=== PATIENT | male | born 1990 | race Caucasian/White ===

== ENCOUNTER 2016-08-16 03:44 | Emergency (ER) | payer BC ==
[2016-08-16] MEDS ORDERED: LORazepam 2 MG/ML INJ IVP ONE (03:48)
[2016-08-16] MEDS ORDERED: NS 2,000 ML IV ONE (03:48)
--- NOTE | 2016-08-16 03:48 | EDPHY ---
H & P HPI/ROS: HPI CHIEF COMPLAINT: Alcohol intoxication, cocaine abuse HISTORY OF PRESENT ILLNESS: This patient is a 26-year-old male, presents the emergency room by EMS for tachycardia, palpitations, alcohol intoxication and cocaine intoxication. Patient tells me that he had 10 liquor drinks this evening. He tells me he is on sure exactly how much cocaine he did. He called 911 after he could not come down his local hotel. He tells me he had racing heart, palpitations. Denies chest pain or shortness of breath. Upon arrival here is noted to have a heart rate in the 130s. Past Medical History:No significant medical history Past Surgical History: No significant surgical history except for appendectomy Social History: occasional alcohol use, occasional cocaine no other illicit drugs, does smoke tobacco Family History: Noncontributory ROS REVIEW OF SYSTEMS: A comprehensive 10 point review of systems is otherwise negative aside from elements mentioned in the history of present illness. Exam Constitutional triage nursing summary reviewed, vital signs reviewed, awake/ alert. Eyes normal conjunctivae and sclera, EOMI, PERRLA. HENT normal inspection, atraumatic, moist mucus membranes, no epistaxis, neck supple/ no meningismus, no raccoon eyes. Respiratory clear to auscultation bilaterally, normal breath sounds, no respiratory distress, no wheezing. Cardiovascular tachycardic, regular rhythm, no murmur, no edema, distal pulses normal. Gastrointestinal soft, non-tender, no rebound, no guarding, normal bowel sounds, no distension, no pulsatile mass. Genitourinary no CVA tenderness. Musculoskeletal no midline vertebral tenderness, full range of motion, no calf swelling, no tenderness of extremities, no meningismus, good pulses, neurovascularly intact. Skin pink, warm, & dry, no rash, skin atraumatic. Neurologic awake, alert and oriented x 3, AAOx3, moves all 4 extremities equally, motor intact, sensory intact, CN II-XII intact, normal cerebellar, normal vision, normal speech. Psychiatric normal mood/affect. Heme/Lymph/Immune no lymphadenopathy. Differential Diagnosis: includes but is not limited to in a particular order acute alcohol intoxication, cocaine intoxication, cocaine abuse, dehydration, cocaine induced tachycardia, demand ischemia, cardiac arrhythmia Medical Decision Making: This patient had an IV established she received IV fluid bolus, IV Ativan for tachycardia with cocaine, will check an EKG, chest x- ray and blood work. Alcohol level. And re-evaluate. Re-evaluation: EKG interpretation by me on record in [employer] system. Impression time of EKG 3:58 a.m., this is sinus tachycardia rate of 113, do not appreciate any acute ST elevation or ST depression or T-wave abnormalities. There is a borderline prolonged QT interval of 348. 0510: Re-examination at this time patient is resting comfortably no acute distress. Has no chest pain shortness of breath, tachycardia has improved. Patient received 2 L normal saline here. Troponin negative. CK elevated at a 1000 will repeat this. ED x-ray chest one view: Negative for acute cardiopulmonary disease. 0531: re-evaluation CK trending down. Re-evaluation at this time patient is resting comfortably no acute distress he is requesting be discharged. He has no nausea vomiting chest pain or shortness of breath. Heart rate improved. CK trending down. I encouraged him to drink lots of fluids today return to the ER if there is any worsening symptoms questions or concerns. He should be urinating clear fluids. He understands if he has trouble urinating or dark concentrated urine he needs return to the ER. Source: Patient, EMS Constitutional: Initial Vital Signs O2 Sat (%) 96 08/16/16 03:48 O2 Delivery Mode Room Air O2 (L/minute) 2 Allergies/Adverse Reactions: No Known Allergies Allergy (Unverified 08/16/16 04:10) Home Medications: Medication Instructions Recorded NK [No Known Home Meds] 08/16/16 Medical Decision Making - Data Points Laboratory Results: Laboratory Results 08/16/16 03:45 08/16/16 03:45 08/16/16 08/16/16 04:00 03:45 WBC 13.27 H 10^3/uL (3.80-9.50) RBC 5.62 10^6/uL (4.40-6.38) Hgb 18.2 H g/dL (13.7-17.5) Hct 49.6 % (40.0-51.0) MCV 88.3 fL (81.5-99.8) MCH 32.4 pg (27.9-34.1) MCHC 36.7 g/dL (32.4-36.7) RDW 11.8 % (11.5-15.2) Plt Count 280 10^3/uL (150-400) MPV 10.8 fL (8.7-11.7) Neut % (Auto) 68.0 % (39.3-74.2) Lymph % (Auto) 20.9 % (15.0-45.0) [place] % (Auto) 9.6 % (4.5-13.0) Eos % (Auto) 0.6 % (0.6-7.6) Baso % (Auto) 0.5 % (0.3-1.7) Nucleat RBC Rel Count 0.0 % (0.0-0.2) Absolute Neuts (auto) 9.02 H 10^3/uL (1.70-6.50) Absolute Lymphs (auto) 2.78 10^3/uL (1.00-3.00) Absolute Monos (auto) 1.28 H 10^3/uL (0.30-0.80) Absolute Eos (auto) 0.08 10^3/uL (0.03-0.40) Absolute Basos (auto) 0.06 10^3/uL (0.02-0.10) Absolute Nucleated RBC 0.00 10^3/uL (0-0.01) Immature Gran % 0.4 % (0.0-1.1) Immature Gran # 0.05 10^3/uL (0.00-0.10) Sodium 144 mEq/L (134-144) Potassium 4.2 mEq/L (3.5-5.2) Chloride 102 mEq/L (97-110) Carbon Dioxide 19 L mEq/l (22-31) Anion Gap 23 mEq/L (8-16) BUN 8 mg/dL (7-23) Creatinine 0.8 mg/dL (0.7-1.3) Estimated GFR > 60 Glucose 85 mg/dL (70-100) Calcium 10.6 H mg/dL (8.5-10.4) Magnesium 2.1 mg/dL (1.6-2.3) Total Bilirubin 1.3 mg/dL (0.1-1.4) Conjugated Bilirubin 0.4 mg/dL (0.0-0.5) Unconjugated Bilirubin 0.9 mg/dL (0.0-1.1) AST 49 IU/L (17-59) ALT 75 H IU/L (21-72) Alkaline Phosphatase 124 IU/L (38-126) Creatine Kinase 1006 H IU/L (0-224) CK-MB (CK-2) Fraction 3.51 H ng/mL (0-3.19) CK-MB (CK-2) % 0.3 % (0.0-4.0) Creatine Kinase Interp NEGATIVE (NEGATIVE) Troponin I < 0.012 ng/mL (0-0.034) Total Protein 9.2 H g/dL (6.3-8.2) Albumin 5.6 H g/dL (3.5-5.0) Lipase 66.0 IU/L (23-300) Urine Opiates Screen NEGATIVE (NEGATIVE) Urine Barbiturates NEGATIVE (NEGATIVE) Ur Phencyclidine Scrn NEGATIVE (NEGATIVE) Ur Amphetamine Screen NEGATIVE (NEGATIVE) U Benzodiazepines Scrn NEGATIVE (NEGATIVE) Urine Cocaine Screen NON-NEGATIVE H (NEGATIVE) U Marijuana (THC) Screen NON-NEGATIVE H (NEGATIVE) Ethyl Alcohol 28 H mg/dL (0-10) Medications Given: Discontinued Medications Sodium Chloride (Ns) 2,000 mls @ 0 mls/hr IV ONCE ONE PRN Reason: As Directed Stop: 08/16/16 03:49 Last Admin: 08/16/16 04:31 Dose: 2,000 mls Lorazepam (Ativan Injection) 1 mg IVP EDNOW ONE Stop: 08/16/16 03:49 Last Admin: 08/16/16 04:31 Dose: 1 mg Departure - Departure Disposition: Home, Routine, Self-Care Clinical Impression: Cocaine abuse Alcoholic intoxication Qualifiers: Complication of substance-induced condition: uncomplicated Qualifier Code: ( F10.120) Alcohol abuse with intoxication, uncomplicated Condition: Good Instructions: Cocaine Abuse (ED), Alcohol Intoxication (ED) Referrals: NONE *PRIMARY CARE P,. [Primary Care Provider] - As per Instructions
--- NOTE | 2016-08-16 03:59 | CPEKG ---
Heart Rate: 113 RR Interval: 531 P-R Interval: 120 QRSD Interval: 94 QT Interval: 348 QTC Interval: 478 P Means: 71 QRS Means: 73 T Wave Means: 34 EKG Severity - BORDERLINE ECG - EKG Impression: SINUS TACHYCARDIA EKG Impression: BORDERLINE PROLONGED QT INTERVAL Electronically Signed By: Rashawn Hensley 16-Aug-2016 07:26:41
[2016-08-16 04:14] LABS: % IMMATURE GRANULYOCYTES 0.4 % (0.0-1.1); ABSOLUTE IMMATURE GRANULOCYTES 0.05 10^3/uL (0.00-0.10); ADD DIFF? NO; ADD MORPH? NO; ADD SCAN? NO; ATYPICAL LYMPHOCYTE FLAG 20 (0-99); FRAGMENT RBC FLAG 0 (0-99); HEMATOCRIT 49.6 % (40.0-51.0); HEMOGLOBIN 18.2 g/dL (13.7-17.5); LEFT SHIFT FLG 0 (0-99); LIPEMIA HEMOLYSIS FLAG 90 (0-99); MEAN CELL HEMOGLOBIN 32.4 pg (27.9-34.1); MEAN CELL HEMOGLOBIN CONCENTR. 36.7 g/dL (32.4-36.7); MEAN CELL VOLUME 88.3 fL (81.5-99.8); MEAN PLATELET VOLUME 10.8 fL (8.7-11.7); PLATELET CLUMPS FLAG 10 (0-99); PLATELET COUNT 280 10^3/uL (150-400); RED BLOOD CELL COUNT 5.62 10^6/uL (4.40-6.38); RED CELL DISTRIBUTION WIDTH 11.8 % (11.5-15.2)
[2016-08-16 04:19] VITALS: O2SAT 96
[2016-08-16 04:23] LABS: ALANINE AMINOTRANSFERASE 75 IU/L (21-72); ALBUMIN 5.6 g/dL (3.5-5.0); ALKALINE PHOSPHATASE 124 IU/L (38-126); ANION GAP 23 mEq/L (8-16); ASPARTATE AMINOTRANSFERASE 49 IU/L (17-59); BILIRUBIN,TOTAL 1.3 mg/dL (0.1-1.4); BILIRUBIN-CONJUGATED 0.4 mg/dL (0.0-0.5); BILIRUBIN-UNCONJUGATED 0.9 mg/dL (0.0-1.1); CALCIUM 10.6 mg/dL (8.5-10.4); CARBON DIOXIDE 19 mEq/l (22-31); CHLORIDE 102 mEq/L (97-110); CREATININE 0.8 mg/dL (0.7-1.3); ETHANOL SERUM 28 mg/dL (0-10); GLOMERULAR FILTRATION RATE > 60; GLUCOSE 85 mg/dL (70-100); MAGNESIUM 2.1 mg/dL (1.6-2.3); POTASSIUM 4.2 mEq/L (3.5-5.2); SODIUM 144 mEq/L (134-144); TOTAL PROTEIN 9.2 g/dL (6.3-8.2)
[2016-08-16 04:33] LABS: CK-MB INTERPRETATION NEGATIVE (NEGATIVE); TROPONIN I < 0.012 ng/mL (0-0.034)
[2016-08-16 04:34] LABS: CREATINE KINASE-MB FRACTION 3.51 ng/mL (0-3.19)
[2016-08-16 06:46] VITALS: BP 143/74; PULSE 86; RESP 16; TEMP 97.9
[2016-08-16 06:58] LABS: CK-MB INTERPRETATION NEGATIVE (NEGATIVE); CREATINE KINASE-MB FRACTION 2.48 ng/mL (0-3.19)
--- NOTE | 2016-08-16 09:20 | DX ---
Portal AP Upright Chest - August 16, 2016, at 4:08 a.m. Clinical History: 26-year-old male with substance abuse, presenting to the Emergency Department with his heart racing and chest pain. Comparison Study: None. Findings: Telemetry monitoring lead lines are noted. The cardiac and mediastinal silhouette is normal . There is no focal infiltrate, atelectasis, pleural effusion, peripheral interstitial edema, or pneu mothorax. The trachea is midline. The osseous structures are age-appropriate. Impression: Normal.
== END 2016-08-16 06:46 | disposition home or self-care (01) ==
DX: F14.10 Cocaine abuse, uncomplicated (principal); F10.120 Alcohol abuse with intoxication, uncomplicated
CPT/HCPCS: 96374; G0477; G0480

== ENCOUNTER 2017-04-06 10:57 | Emergency (ER) | payer BC ==
[2017-04-06 11:15] VITALS: RESP 16
[2017-04-06] MEDS ORDERED: ONDANSETRON 4 MG/2 ML VIAL IVP ONE (11:45)
[2017-04-06] MEDS ORDERED: KETOROLAC 30 MG/1 ML SDV IVP ONE (11:45)
[2017-04-06] MEDS ORDERED: NS 1,000 ML IV ONE (11:45)
[2017-04-06 12:10] LABS: COLOR PALE YELLOW; LEUKOCYTE ESTERASE,URINE NEGATIVE (NEGATIVE); NITRITE,URINE NEGATIVE (NEGATIVE)
[2017-04-06 12:36] LABS: % IMMATURE GRANULYOCYTES 0.2 % (0.0-1.1); ABSOLUTE IMMATURE GRANULOCYTES 0.02 10^3/uL (0.00-0.10); ADD DIFF? NO; ADD MORPH? NO; ADD SCAN? NO; ATYPICAL LYMPHOCYTE FLAG 20 (0-99); FRAGMENT RBC FLAG 0 (0-99); HEMATOCRIT 47.3 % (40.0-51.0); HEMOGLOBIN 16.4 g/dL (13.7-17.5); LEFT SHIFT FLG 0 (0-99); LIPEMIA HEMOLYSIS FLAG 90 (0-99); MEAN CELL HEMOGLOBIN 30.4 pg (27.9-34.1); MEAN CELL HEMOGLOBIN CONCENTR. 34.7 g/dL (32.4-36.7); MEAN CELL VOLUME 87.6 fL (81.5-99.8); PLATELET CLUMPS FLAG 40 (0-99); PLATELET COUNT 224 10^3/uL (150-400); RED CELL DISTRIBUTION WIDTH 12.5 % (11.5-15.2)
[2017-04-06 12:53] LABS: ANION GAP 12 mEq/L (8-16); CALCIUM 9.1 mg/dL (8.5-10.4); CARBON DIOXIDE 22 mEq/l (22-31); CHLORIDE 107 mEq/L (97-110); CREATININE 0.6 mg/dL (0.7-1.3); GLOMERULAR FILTRATION RATE > 60; GLUCOSE 78 mg/dL (70-100); POTASSIUM 4.6 mEq/L (3.5-5.2); SODIUM 141 mEq/L (134-144)
--- NOTE | 2017-04-06 13:53 | EDPHY ---
H & P Smoking Status: Current every day smoker Time Seen by Provider: 04/06/17 13:50 HPI/ROS: HPI: This is a 26-year-old male who presents Chief Complaint: Left flank pain Location: Left pain Quality: Pain Duration: 1-2 hours Signs and Symptoms: No fever, no injury, no urinary symptoms including no hematuria, no nausea, no vomiting, no diarrhea, no groin pain, no testicular discharge, no chest pain, no shortness of breath Timing: Sudden Severity: Moderate Context: Patient presents with left flank pain nonradiating in nature that is moderate to severe. No history kidney stones. Patient is worried about kidney stones as he spoke with his friends and looked up on [employer]. The patient denies any recent injury or heavy lifting. Modifying Factors: No gout-tek-ctntasr medications tried Comment: ROS: Eyes: No blurred vision Respiratory: No shortness of breath, no cough Cardiovascular: No chest pain Gastrointestinal: No nausea, no vomiting no diarrhea Genitourinary: No dysuria Extremities: No myalgias Neurologic: No weakness, no numbness Skin: No rashes Hematologic: No bruising, no bleeding MEDICAL/SURGICAL HISTORY: Appendectomy. Generally healthy. (Lynn Lane) Social History: Student. Drinks considerable amount of caffeine. (Lynn Lane) Physical Exam: CONSTITUTIONAL: awake and alert, no obvious distress HEENT: Atraumatic and normocephalic, PERRL, EOMI. Tympanic membranes clear. Oropharynx clear, no exudate and moist pink mucosa. Airway patent. No lymphadenopathy. No meningismus. Cardiovascular: Normal S1/S2, regular rate, regular rhythm, without murmur rub or gallop. PULMONARY/CHEST: Symmetrical and nontender. Clear to auscultation bilaterally Good air movement. No accessory muscle usage. ABDOMEN: Soft, nondistended, nontender, no rebound, no guarding, no peritoneal signs, no masses or organomegaly. mild CVAT. EXTREMITIES: 2/2 pulses, no deformities, no clubbing, no cyanosis or edema. NEUROLOGICAL: no focal neuro deficits. GCS 15. SKIN: Warm and dry, no erythema. no rash. Good capillary refill. (Lynn Lane) Constitutional: Initial Vital Signs Temperature (C) 37.1 C 04/06/17 11:13 Heart Rate 80 04/06/17 11:13 Respiratory Rate 16 08/22/17 11:13 Blood Pressure 117/75 04/06/17 11:13 O2 Sat (%) 98 04/06/17 11:13 O2 Delivery Mode Room Air Allergies/Adverse Reactions: No Known Allergies Allergy (Unverified 08/16/16 04:10) Home Medications: Medication Instructions Recorded NK [No Known Home Meds] 08/16/16 Medical Decision Making - Diagnostics Imaging Results: Imaging Impressions Abdomen/Pelvis CT 04/06/17 11:45 Impression: 1. No nephrolithiasis or hydronephrosis. 2. Previous appendectomy. 3. Mild constipation. 4. No hepatosplenomegaly or bowel obstruction. Attention: This CT examination is specifically designed to evaluate patients who are clinically suspected of having acute obstructive uropathy. This examination does not use radiographic contrast, and as such, provides only a limited evaluation of the abdomen, pelvis and retroperitoneum. If there is further clinical suspicion for pathological conditions other than obstructive uropathy, a complete CT evaluation of the abdomen and pelvis utilizing intravenous, oral, and rectal contrast should be considered. Findings and recommendations discussed with Emergency Department physician, Lynn Lane PA-C at 1351 hours on April 06, 2017. Final report concurs with initial preliminary interpretation. ED Course/Re-evaluation: Labs, urinalysis, IV fluids, IV medications, CT abdominal and pelvis scan Labs and urinalysis grossly unremarkable Afebrile no systemic signs. Pain relieved with Toradol Suspect musculoskeletal component 1350: Called by Radiology and no signs of kidney stone or compression fracture. Mild constipation noted. (Lynn Lane) The patient was evaluated and managed by the physician podiatric assistant. I have reviewed this chart and I agree with the findings and plan of care as documented , as indicated by my signature. I am the secondary supervising physician. ( Anastasia De Santiago) Differential Diagnosis: Abdominal pain including but not limited to appendicitis, cholecystitis, gastritis and urinary tract infection. (Lynn Lane) - Data Points Laboratory Results: Laboratory Results 04/06/17 12:30 04/06/17 12:30 04/06/17 04/06/17 04/06/17 12:30 12:30 11:45 WBC 8.01 10^3/uL 10^3/uL (3.80-9.50) RBC 5.40 10^6/uL 10^6/uL (4.40-6.38) Hgb 16.4 g/dL g/dL (13.7-17.5) Hct 47.3 % % (40.0-51.0) MCV 87.6 fL fL (81.5-99.8) MCH 30.4 pg pg (27.9-34.1) MCHC 34.7 g/dL g/dL (32.4-36.7) RDW 12.5 % % (11.5-15.2) Plt Count 224 10^3/uL 10^3/uL (150-400) MPV 11.0 fL fL (8.7-11.7) Neut % (Auto) 52.6 % % (39.3-74.2) Lymph % (Auto) 30.5 % % (15.0-45.0) [place] % (Auto) 10.2 % % (4.5-13.0) Eos % (Auto) 5.9 % % (0.6-7.6) Baso % (Auto) 0.6 % % (0.3-1.7) Nucleat RBC Rel Count 0.0 % % (0.0-0.2) Absolute Neuts (auto) 4.21 10^3/uL 10^3/uL (1.70-6.50) Absolute Lymphs (auto) 2.44 10^3/uL 10^3/uL (1.00-3.00) Absolute Monos (auto) 0.82 10^3/uL H 10^3/uL (0.30-0.80) Absolute Eos (auto) 0.47 10^3/uL H 10^3/uL (0.03-0.40) Absolute Basos (auto) 0.05 10^3/uL 10^3/uL (0.02-0.10) Absolute Nucleated RBC 0.00 10^3/uL 10^3/uL (0-0.01) Immature Gran % 0.2 % % (0.0-1.1) Immature Gran # 0.02 10^3/uL 10^3/uL (0.00-0.10) Sodium 141 mEq/L mEq/L (134-144) Potassium 4.6 mEq/L mEq/L (3.5-5.2) Chloride 107 mEq/L mEq/L (97-110) Carbon Dioxide 22 mEq/l mEq/l (22-31) Anion Gap 12 mEq/L mEq/L (8-16) BUN 11 mg/dL mg/dL (7-23) Creatinine 0.6 mg/dL L mg/dL (0.7-1.3) Estimated GFR > 60 Glucose 78 mg/dL mg/dL (70-100) Calcium 9.1 mg/dL mg/dL (8.5-10.4) Urine Color PALE YELLOW Urine Appearance CLEAR Urine pH 7.0 (5.0-7.5) Ur Specific [place] 1.006 (1.002-1.030) Urine Protein NEGATIVE (NEGATIVE) Urine Ketones NEGATIVE (NEGATIVE) Urine Blood NEGATIVE (NEGATIVE) Urine Nitrate NEGATIVE (NEGATIVE) Urine Bilirubin NEGATIVE (NEGATIVE) Urine Urobilinogen NEGATIVE EU EU (0.2-1.0) Ur Leukocyte Esterase NEGATIVE (NEGATIVE) Urine Glucose NEGATIVE (NEGATIVE) Medications Given: Discontinued Medications Sodium Chloride (Ns) 1,000 mls @ 0 mls/hr IV ONCE ONE; Wide Open PRN Reason: Protocol Stop: 04/06/17 11:46 Last Admin: 04/06/17 12:28 Dose: 1,000 mls Ketorolac Tromethamine (Toradol) 30 mg IVP EDNOW ONE Stop: 04/06/17 11:46 Last Admin: 04/06/17 12:28 Dose: 30 mg Ondansetron HCl (Zofran) 4 mg IVP EDNOW ONE Stop: 04/06/17 11:46 Last Admin: 04/06/17 12:28 Dose: 4 mg Departure - Departure Disposition: Home, Routine, Self-Care Clinical Impression: Strain of thoracic region Qualifiers: Encounter type: initial encounter Qualified Code(s): S29.019A - Strain of muscle and tendon of unspecified wall of thorax, initial encounter Condition: Good Instructions: Thoracic Back Strain (ED) Additional Instructions: Take ibuprofen 600-800 mg 3 times daily as needed for pain. Referrals: NONE *PRIMARY CARE P,. [Primary Care Provider] - As per Instructions [facility],. [Clinic] - 2-3 days, if not improved
[2017-04-06 14:02] VITALS: BP 115/63; PULSE 65; TEMP 97.9; O2SAT 97
== END 2017-04-06 14:05 | disposition home or self-care (01) ==
DX: S29.019A Strain of muscle and tendon of unspecified wall of thorax, initial encounter (principal); F17.200 Nicotine dependence, unspecified, uncomplicated; E86.9 Volume depletion, unspecified; X58.XXXA Exposure to other specified factors, initial encounter
CPT/HCPCS: 96374; J1885; J2405